=== PATIENT | female | born 1990 | race African-American/Black ===

== ENCOUNTER → 2019-11-08 10:49 | Outpatient (CLI) | payer MEDICAID ==
[2014-12-11 06:10] VITALS: BMI 58.5
[~2019-11-08 10:49] MED LIST: ALDOMET250 MG PO; EZFE 200200 MG PO; PERCOCET 10/3251 TA1 PO; PRENATAL COMPLE1 TAB PO; PROTONIX40 MG
[2019-11-08 11:37] LABS: BASOPHILS 0 % (0-2); EOSINOPHILS 0.5 % (0-7); HEMATOCRIT 28.8 % (36.0-48.0); HEMOGLOBIN 9.1 g/dL (12-16); IMMATURE GRANULOCYTES 0.2 % (0-5); LYMPHOCYTES 6.6 % (15-50); MCH 26.5 pg (26.0-34.0); MCHC 31.6 g/dL (31.0-37.0); MCV 83.7 fL (80.0-100.0); MONOCYTES 5.6 % (2-11); NEUTROPHILS 87.1 % (40-80); PLATELET COUNT 262 10x3/uL (130-400); RBC 3.44 10x6/uL (4.00-5.40); RDW 13.8 % (11.5-14.5); WBC 9.3 10x3/uL (4.8-10.8)
[2019-11-08 11:52] LABS: CALC OSMOLALITY 276 mosm/kg (275-300); CALCIUM 8.1 mg/dL (8.5-10.1); CARBON DIOXIDE 25.4 mmol/L (21.0-32.0); CHLORIDE - SERUM 105 mmol/L (98-107); CREATININE - SERUM 0.6 mg/dL (0.6-1.3); GLUCOSE 112 mg/dL (74-106); POTASSIUM - SERUM 3.2 mmol/L (3.5-5.1); SODIUM 139 mmol/L (136-145); UREA NITROGEN 7 mg/dL (7-18); eGFR NON AFRICAN AMERICAN > 90 mL/min (90-120)
[2019-11-08 11:57] LABS: ALBUMIN 2.2 g/dL (3.4-5.0); ALKALINE PHOSPHATASE 63 U/L (46-116); ALT (SGPT) 36 U/L (10-68); BILIRUBIN - DIRECT 0.13 mg/dL (0.00-0.30); BILIRUBIN - INDIRECT 0.27 mg/dL (0.00-1.00); URIC ACID 3.9 mg/dL (2.6-7.2)
[2019-11-08 14:09] LABS: APPEARANCE CLEAR (CLEAR); BILIRUBIN NEGATIVE (NEGATIVE); COLOR YELLOW (YELLOW); GLUCOSE NEGATIVE (NEGATIVE); KETONE NEGATIVE (NEGATIVE); NITRITE NEGATIVE (NEGATIVE); PROTEIN NEGATIVE (NEGATIVE)
== END | disposition home or self-care (01) ==
LOC: D.LDO 10:49
PROVIDERS: ATTEND Student in an Organized Health Care Education/Training Program
DX: O10.919 Unspecified pre-existing hypertension complicating pregnancy, unspecified trimester (principal)

== ENCOUNTER 2019-11-29 09:44 | Outpatient (CLI) | payer MEDICAID ==
[2014-12-11 06:10] VITALS: BMI 58.5
== END 2019-11-29 12:00 | disposition home or self-care (01) ==
LOC: D.LDO 09:44
PROVIDERS: ATTEND Student in an Organized Health Care Education/Training Program
DX: O16.3 Unspecified maternal hypertension, third trimester (principal); Z3A.33 33 weeks gestation of pregnancy

== ENCOUNTER → 2019-12-06 09:51 | Outpatient (CLI) | payer OTHER ==
[2014-12-11 06:10] VITALS: BMI 58.5
== END | disposition home or self-care (01) ==
LOC: D.LDO 09:51
PROVIDERS: ATTEND Student in an Organized Health Care Education/Training Program
DX: O10.919 Unspecified pre-existing hypertension complicating pregnancy, unspecified trimester (principal)

== ENCOUNTER 2019-12-15 08:36 | Outpatient (CLI) | payer OTHER ==
[2014-12-11 06:10] VITALS: BMI 58.5
[2019-12-15 10:26] LABS: BASOPHILS 0 % (0-2); EOSINOPHILS 0.9 % (0-7); HEMATOCRIT 29.1 % (36.0-48.0); HEMOGLOBIN 9.1 g/dL (12-16); IMMATURE GRANULOCYTES 0.4 % (0-5); LYMPHOCYTES 7.8 % (15-50); MCH 25.7 pg (26.0-34.0); MCHC 31.3 g/dL (31.0-37.0); MCV 82.2 fL (80.0-100.0); MEAN PLATELET VOLUME 9.4 fL (7.4-10.4); MONOCYTES 6.7 % (2-11); NEUTROPHILS 84.2 % (40-80); PLATELET COUNT 275 10x3/uL (130-400); RBC 3.54 10x6/uL (4.00-5.40); RDW 14.3 % (11.5-14.5); WBC 9.1 10x3/uL (4.8-10.8)
[2019-12-15 10:37] LABS: CALC OSMOLALITY 274 mosm/kg (275-300); CALCIUM 8.4 mg/dL (8.5-10.1); CARBON DIOXIDE 26.9 mmol/L (21.0-32.0); CHLORIDE - SERUM 104 mmol/L (98-107); CREATININE - SERUM 0.7 mg/dL (0.6-1.3); GLUCOSE 101 mg/dL (74-106); POTASSIUM - SERUM 3.7 mmol/L (3.5-5.1); SODIUM 138 mmol/L (136-145); UREA NITROGEN 11 mg/dL (7-18); eGFR NON AFRICAN AMERICAN > 90 mL/min (90-120)
[2019-12-15 10:44] LABS: ALBUMIN 2.1 g/dL (3.4-5.0); ALKALINE PHOSPHATASE 69 U/L (30-120); BILIRUBIN - INDIRECT 0.34 mg/dL (0.00-1.00); BILIRUBIN - TOTAL 0.44 mg/dL (0.2-1.3); PROTEIN - SERUM 6.8 g/dL (6.4-8.2); URIC ACID 4.5 mg/dL (2.6-7.2)
[2019-12-15 10:46] LABS: ALT (SGPT) 37 U/L (10-68)
[2019-12-15 11:22] LABS: APPEARANCE CLEAR (CLEAR); BILIRUBIN NEGATIVE (NEGATIVE); COLOR YELLOW (YELLOW); GLUCOSE NEGATIVE (NEGATIVE); KETONE NEGATIVE (NEGATIVE); NITRITE NEGATIVE (NEGATIVE); PROTEIN NEGATIVE (NEGATIVE); UROBILINOGEN NORMAL (NORMAL)
--- NOTE | 2019-12-15 16:26 | NUR ---
SITTING UP IN BED WATCHING TV. REQUESTED JUICE AND SANDWICH TRAY. BOTH WERE GIVEN ALONG WITH FRESH WATER. INSTRUCTED PT SHE CAN SIT UP ON COUCH OR WALK AROUND NEEDED. VERBALIZED UNDERSTANDING. 24 HOUR URINE IN PROGRESS.
[2019-12-16 11:11] LABS: PROTEIN - URINE 30.1 mg/dL (0.0-11.9)
== END 2019-12-16 11:50 | disposition home or self-care (01) ==
LOC: D.LDO 08:36 → D.LD 17:40 → D.LDO 12-16 11:50
PROVIDERS: ATTEND Student in an Organized Health Care Education/Training Program
DX: O16.3 Unspecified maternal hypertension, third trimester (principal); Z3A.36 36 weeks gestation of pregnancy

== ENCOUNTER → 2019-12-17 12:27 | Outpatient (CLI) | payer OTHER ==
[2014-12-11 06:10] VITALS: BMI 58.5
[~2019-12-17 12:27] MED LIST changes: +IBUPROFEN800 MG PO; +NORMODYNE / TR300 MG PO; +PERCOCET 7.5/321 TAB PO; +PROCARDIA XL60 MG PO
== END | disposition home or self-care (01) ==
LOC: D.LDO 12:27
PROVIDERS: ATTEND Student in an Organized Health Care Education/Training Program
DX: O16.3 Unspecified maternal hypertension, third trimester (principal); Z3A.36 36 weeks gestation of pregnancy

== ENCOUNTER 2019-12-21 09:23 | Inpatient (IN) | payer OTHER ==
[~2019-12-21] VITALS: Ht 167.6 cm; Wt 207.7 kg
[2019-12-21] VITALS (11 sets, daily range): BP systolic 137–172; BP diastolic 77–94; Ht 167.6 cm; Wt 207.7 kg
--- NOTE | ~2019-12-21 | OP ---
PATIENT NAME: GABRIELLE NORIEGA MEDICAL RECORD: [id number] :88 LOCATION:[facility]74 ADMISSION DATE:12/21/19 SURGEON: NELL RECINOS DO DATE OF OPERATION: 12/21/2019 PREOPERATIVE DIAGNOSIS: Previous section; multiparity, desire for permanent sterilization. POSTOPERATIVE DIAGNOSIS: Previous section; multiparity, desire for permanent sterilization. PRIMARY SURGEON: Nell Recinos DO DIRECTOR STARS SURGEON: Dr. Vlad Astudillo. ANESTHESIA: General ET tube. PROCEDURE: Midtransverse uterine incision via vertical skin incision, bilateral fimbriectomy. FINDINGS: Male infant, weight 3855 grams. Apgars 8 and 9, delivered at 1317. Normal appearing uterus, bilateral fallopian tubes, bilateral ovaries. SPECIMENS: Placenta and cord. ESTIMATED BLOOD LOSS: 1600 CC. IV FLUIDS: 3 liters +2 units PRBCs. URINE OUTPUT: 250 cc clear urine. COMPLICATIONS: None. CONDITION: Stable. PROCEDURE: The risks, benefits, alternatives and indications of the procedure were discussed with the patient. She voiced understanding of the procedure and signed the consent. She understood that tubal ligation is a permanent procedure and expressed desire for permanent sterility. She was taken to the OR where general anesthesia was administered and found to be adequate. She was placed in the dorsal supine position with a leftward tilt. She was prepped and draped in the normal sterile fashion. A vertical skin incision was made with the scalpel 2 cm superior to the umbilicus, around the umbilicus, and down to 2 cm superior to the pubic ramus. The incision was carried down to the underlying layer of the fascia with the Bovie. The fascia was grasped with 2 Carol clamps and noted to be free of adherent bowel and the fascia was incised with Styles scissors. The fascial incision was extended after ensuring no bowel was adhesed to the fascia. The fascia was extended superiorly and inferiorly with the Bovie. The bladder blade was inserted. A bladder flap was created with Metzenbaum scissors and the uterus was incised in a transverse fashion in the mid uterine area. The incision was extended with cephalad caudad traction. The infant's head was brought to the incision and the delivered without difficulty. Mouth and nose were suctioned. Cord was clamped and cut and the was handed off to waiting pediatricians. The placenta was manually removed. The uterus was exteriorized and a moist lap was used to assure complete removal of placenta OPERATIVE REPORT [id number] GABRIELLE NORIEGA tamiko. The hysterotomy was closed with 0 Vicryl in a double layer closure with good hemostasis noted. Due to uterine atony, Hemabate was given and an extra 10 units of Pitocin was put in the IV fluids with good uterine tone following treatment. The right fimbria was grasped with a Deale and was removed and suture ligated with good hemostasis. The left fallopian tube was removed in a similar fashion with good hemostasis. The uterus and ovaries were returned back to the abdominal cavity. A moist laparotomy sponge was used to assure complete removal of blood clots and fluid from the abdominal cavity and the abdominal cavity was irrigated and noted to be hemostatic. The hysterotomy was reinspected and noted to be hemostatic. The fascial incision was closed with 0 looped PDS with good hemostasis. The subcutaneous fat was closed with 2-0 plain with multiple layer closure and the skin was closed with matt with good hemostasis. All needle, lap, sponge, and instrument counts were correct times 2. The patient tolerated the procedure well and she was awakened and taken to the recovery room in stable condition. TRANSINT:[id number] Voice Confirmation ID: [id number] DOCUMENT ID: [id number] NELL RECINOS DO CC: [id number] DICTATION DATE: 12/21/19 1438 ENGINEERING DESIGN SUPERVISOR: 12/21/192219 ADM IN [place] [id number] [place] [address]
[~2019-12-21 09:23] MED LIST changes: -IBUPROFEN800 MG PO; -NORMODYNE / TR300 MG PO; -PERCOCET 7.5/321 TAB PO; -PROCARDIA XL60 MG PO
[2019-12-21 10:50] LABS: HEMATOCRIT 30.2 % (36.0-48.0); HEMOGLOBIN 9.3 g/dL (12-16); MCH 25.6 pg (26.0-34.0); MCHC 30.8 g/dL (31.0-37.0); MCV 83.2 fL (80.0-100.0); MEAN PLATELET VOLUME 9.4 fL (7.4-10.4); RBC 3.63 10x6/uL (4.00-5.40); RDW 14.8 % (11.5-14.5); WBC 10.4 10x3/uL (4.8-10.8)
--- NOTE | 2019-12-21 13:44 | NUR ---
BABY 1317 PLACENTA 1318
--- NOTE | 2019-12-21 15:25 | NUR ---
TO ROOM 1274 VIA BED FROM RR. AWAKE AND VERBAL RESPONSES APPRO TO QUESTIONS. MENDOZA ON COMMAND. IV RT ACS- SALINE LOCK. IV LR hand with pitocin 20units infusing at 125cc/hr/pump. co cramping and rates pain a 5 on scale of 0-10.
--- NOTE | 2019-12-21 15:44 | NUR ---
mod lochia noted on pads underneath pt- rr nurse states that has not been changed. new pads placed and edna pad placed. pt able to lift bottom a slight bit. edna pads placed. no clots noted on pads underneath. utilization supervisor morphine setup at 2mg/ q10min as per order and pt instructed on use. ice cap to abd. vertical incision with dressing noted covered with abd binder. cd&i.
--- NOTE | 2019-12-21 15:47 | NUR ---
sips ice water given. 125cc urine emptied from chamber.
--- NOTE | 2019-12-21 16:11 | NUR ---
small lochia noted on pads. pt talking with family.
[2019-12-21 16:42] LABS: APPEARANCE CLEAR (CLEAR); BILIRUBIN NEGATIVE (NEGATIVE); COLOR YELLOW (YELLOW); GLUCOSE NEGATIVE (NEGATIVE); KETONE NEGATIVE (NEGATIVE); NITRITE NEGATIVE (NEGATIVE); PROTEIN TRACE mg/dL (NEGATIVE); UROBILINOGEN NORMAL (NORMAL)
--- NOTE | 2019-12-21 16:52 | NUR ---
sitting up in bed talking with family. small lochia noted on pad.
--- NOTE | 2019-12-21 17:01 | NUR ---
report of bp to dr russ- new orders received.
--- NOTE | 2019-12-21 17:17 | NUR ---
holding - denies needs. states pain "is not bad at all"
--- NOTE | 2019-12-21 17:19 | NUR ---
small-mod lochia noted on pad- pad changed.
--- NOTE | 2019-12-21 18:17 | NUR ---
sm to mod lochia on edna pad. no clots edna area cleansed- pads changed. drinking liquids at this time- flory well.
--- NOTE | 2019-12-21 19:15 | NUR ---
BEDSIDE SHIFT REPORT COMPLETED. PERIPADS CHANGED WITH MODERATE LOCHIA NOTED. Lynette MARTINS RN
[2019-12-21 20:02] LABS: BASOPHILS 0.1 % (0-2); EOSINOPHILS 0.2 % (0-7); HEMATOCRIT 29.5 % (36.0-48.0); HEMOGLOBIN 9.4 g/dL (12-16); IMMATURE GRANULOCYTES 0.2 % (0-5); LYMPHOCYTES 5.5 % (15-50); MCH 26.3 pg (26.0-34.0); MCHC 31.9 g/dL (31.0-37.0); MCV 82.4 fL (80.0-100.0); MEAN PLATELET VOLUME 9.2 fL (7.4-10.4); MONOCYTES 5.7 % (2-11); NEUTROPHILS 88.3 % (40-80); PLATELET COUNT 293 10x3/uL (130-400); RBC 3.58 10x6/uL (4.00-5.40); RDW 14.9 % (11.5-14.5)
[2019-12-21 20:03] LABS: WBC 13.3 10x3/uL (4.8-10.8)
--- NOTE | 2019-12-21 20:30 | NUR ---
PT'S CALL LIGHT SOUNDING. THIS RN TO BEDSIDE. PT'S IV PUMP SOUNDING. IV SITE SECURED. PUMP SILENCED. PT DENIES NEEDS AT THIS TIME. CURRENTLY HOLDING BABY.
--- NOTE | 2019-12-21 21:00 | NUR ---
ROUNDS MADE. PT CURRENTLY NEEDING ASSISTANCE WITH GETTING BABY TO FEED. ASSISTANCE PROVIDED.
--- NOTE | 2019-12-21 23:00 | NUR ---
ROUNDS MADE. PT AA&O X 4 WATCHING TV. PAIN AND NEEDS ASSESSED. PT REPORTS PAIN 02/28. REQUEST PERIPAD CHANGE. CURRENT PERIPADS W/MODERATE TO LARGE RUBRA LOCHIA NOTED. PERICARE DONE ALONG W/WILL CARE. CLEAN PERIPADS PLACED. NO CURRENT VAG BLEEDING NOTED. PT DENIES FURTHER NEEDS AT THIS TIME. APPROX 100ML OF URINE DUMPED FROM UROMETER. PT DENIES FURTHER NEEDS. T/C/D TEACHING PROVIDED. PT REPORTS SHE IS USING HER I.S. INSTRUCTED. BED LOW, SIDE RAILS UP X 2. CALL LIGHT, PHONE AND MUSCULOSKELETAL PHYSICIAN BUTTON AT PT'S SIDE.
[2019-12-22 00:30] VITALS: BP 143/83
--- NOTE | 2019-12-22 00:30 | NUR ---
PT REC'D IN BED ASLEEP AT THIS TIME. NO DISTRESS NOTED. DRESSING TO ABDOEN CDI. ICE PACK IN PLACE AT THIS TIME. WILL CATH PATENT. SEE FLOWSHEET FOR ADDITIONAL CHARTING. Lynette MARTINS RN
--- NOTE | 2019-12-22 02:23 | NUR ---
pt admisistered toradol, labetolol, and new bag of pitocin up at this time. tim kraft rn
[2019-12-22 04:29] VITALS: BP 142/67
--- NOTE | 2019-12-22 04:29 | NUR ---
PERICARE PROVIDED AT THIS TIME. SMALL CLOTS X3 NOTED. VSS. NO DISTRESS NOTED. PT DENIES PAIN. Lynette MARTINS RN
[2019-12-22 05:09] LABS: RAPID PLASMA REAGIN Non Reactive (Non Reactive)
[2019-12-22 07:17] VITALS: BP 141/79
--- NOTE | 2019-12-22 07:17 | NUR ---
PT AAOX4, VSS, AFEBRILE, RESP EVEN AND UNLABORED, LUNGS CTAB, HEART RRR, NO MURMUR NOTED, HOB ELEVATED 45 DEGREES, ABD SOFT WITH BULKY VERTICAL PRESSURE DRESSING CDI, FUNDUS FIRM AT U/2 AND MIDLINE, LOCHIA RUBRA MODERATE AMOUNT, NO CLOTS, PERICARE PROVIDED, MENDOZA FREELY, NEGATIVE RADHA'S SIGN B LE, PEDAL PULSES STRONG/=/2+ B. IV TO LEFT HAND PATENT INFUSING LR WITH 20 UNITS PITOCIN WITHOUT SIGNS OR SYMPTOMS OF INFECTION/INFILTRATION. RIGHT A/C SALINE LOCK INTACT AND BENIGN TO INSPECTION. DENIES SINHA, BLURRY VISION, DIZZINESS, OR OTHER PROBLEMS, PAIN AT 4/10 ON NUMERIC PAIN SCALE, POWER SAW MECHANIC OF MORPHINE IN USE, CALL LIGHT AND POWER SAW MECHANIC BUTTON WITHIN EASY REACH OF PT, CUP OF ICE WATER PROVIDED PER REQUEST. WILL TO GRAVITY DRAINAGE WITH XIOMARA URINE NOTED IN COLLECTION CHAMBER.
[2019-12-22 07:31] LABS: BASOPHILS 0.2 % (0-2); EOSINOPHILS 0.6 % (0-7); HEMATOCRIT 28.3 % (36.0-48.0); HEMOGLOBIN 8.9 g/dL (12-16); IMMATURE GRANULOCYTES 0.2 % (0-5); LYMPHOCYTES 7.3 % (15-50); MCH 26.1 pg (26.0-34.0); MCHC 31.4 g/dL (31.0-37.0); MEAN PLATELET VOLUME 9.3 fL (7.4-10.4); MONOCYTES 6.9 % (2-11); NEUTROPHILS 84.8 % (40-80); PLATELET COUNT 279 10x3/uL (130-400); RBC 3.41 10x6/uL (4.00-5.40); RDW 15.2 % (11.5-14.5); WBC 12.4 10x3/uL (4.8-10.8)
--- NOTE | 2019-12-22 08:30 | NUR ---
ROUNDS COMPLETED, SCHEDULED TORADOL GIVEN PER MD ORDERS. DENIES C/O PAIN AT PRESENT. RESP EVEN AND UNLABORED, INFANT IN ARMS, NAD. WILL MONITOR.
--- NOTE | 2019-12-22 09:15 | NUR ---
ancef not available for administration, notified pharmacy and will deliver as soon as possible.
--- NOTE | 2019-12-22 09:35 | NUR ---
ROUNDS COMPLETED, VSS, AFEBRILE, 1 UNIT PRBCS INFUSING TO LEFT HAND PIV SITE SLOWLY PER FACILITY PROTOCOL. IV SITE BENIGN TO INSPECTION, DENIES SINHA, BLURRY VISION, BACK PAIN, CHILLS. WILL MONITOR FOR CHANGE IN CONDITION. IN ROLLING CRIB ADJACENT TO BED.
--- NOTE | 2019-12-22 10:40 | NUR ---
1st unit prbc's completed, no signs or symptoms of transfusion reaction at this time, sbp slightly elevated and md aware as updated on pt rounds. resp even and unlabored, talkative, on telephone now. denies needs. tolerating po, good output of hola urine noted in collection chamber of tamez. discussed plan to dc tamez following prbc adminsitration. denies pain. states some flatus. will monitor.
--- NOTE | 2019-12-22 11:08 | NUR ---
2nd unit of prbc initiated per facility policy, no s/sx immediate reaction, denies sob, cough, pain, chills, or malaise. talking on telephone, cup of ice water refilled per request. reviewed plan of care, instructions given on s/sx to report, encouraged to use call light prn any needs. states understanding. will continue to monitor.
[2019-12-22 12:01] VITALS: BP 152/76
--- NOTE | 2019-12-22 12:30 | NUR ---
2nd unit prbc'c completed, vss. afebrile, no s/sx tranfusion reaction noted. resp even and unlabored, call light in easy reach of pt, emptied 400ml urine from tamez catheter, then tamez bulb deflated and removed per md orders, pericare provided, peripad placed. iv converted to saline lock device, site benign to left hand. lunch tray to pt, personal belongings placed within easy reach of pt. encouraged pt to notify this rn of desire to get oob for voiding and to ambulate in halls. questions answered. will monitor for change in status.
--- NOTE | 2019-12-22 13:15 | NUR ---
ROUNDS COMPLETED, DENIES NEEDS OR CONCERNS. WILL MONITOR. NAD.
--- NOTE | 2019-12-22 14:05 | NUR ---
SHOWER COMPLETED, ABD DRESSING REMOVED, VERTICAL INCISION CDI WITH CAMILO, REMAINS WELL-APPROXIMATED WITH NO ERYTHEMA, EDEMA, DRAINAGE, OR DEHISCENCE. ENCOURAGED PT TO KEEP CLEAN AND DRY, USE OF GAUZE PADS OR PERIPADS IN ABDOMINAL FOLDS TO MINIMIZE MOISTURE. ABD BINDER PLACED AROUND ABDOMEN FOR PT SUPPORT. AMBULATORY IN HALLS WITH ASSISTANCE, NAD NOTED. [facility] WITH [facility] PERSONAL BELONGINGS, ORIENTED TO ROOM/TV/UNIT. CALL LIGHT PLACED WITHIN EASY REACH OF PT. WHITEBOARD UPDATED. WILL MONITOR.
--- NOTE | 2019-12-22 14:24 | NUR ---
SCHEDULED TORADOL ADMINISTERED WITH SIPS WATER. PT REPORTS GAS PAIN ALONG INCISION SITE, OFFERED PRN DULCOLAX, PERCOCET, OR MYLICON AVAILABLE PER MD ORDERS AND PT REFUSES AT THIS TIME. IN ARMS, NAD NOTED. CALL LIGHT IN EASY REACH. CONTINUE TO MONITOR.
--- NOTE | 2019-12-22 15:05 | NUR ---
ROUNDS COMPLETED, DENIES C/O PAIN AT THIS TIME, AMBULATORY IN ROOM. DENIES NEEDS. WILL MONITOR.
[2019-12-22 16:30] VITALS: BP 145/85
--- NOTE | 2019-12-22 16:50 | NUR ---
ROUNDS COMPLETED, VSS, AFEBRILE, +BM TODAY, DENIES NEED FOR PAIN MEDICATION ON OFFER. DINNER TRAY ON BST. SPOUSE IN ROOM TO ASSIST PT. WILL CONTINUE TO MONITOR.
--- NOTE | 2019-12-22 17:20 | NUR ---
ROUNDS COMPLETED, NAD NOTED. DENIES NEEDS OR CONCERNS. IN ROLLING CRIB ADJACENT TO BED, ALSO NAD NOTED. CONTINUE TO MONITOR. CALL LIGHT IN EASY REACH.
--- NOTE | 2019-12-22 18:08 | NUR ---
ROUNDS COMPLETED, NAD NOTED, ICE WATER PROVIDED UPON REQUEST.
--- NOTE | 2019-12-22 18:23 | NUR ---
PT C/O PAIN 6/10 ON NUMERIC PAIN SCALE, PRN MED GIVEN WITH SIPS WATER. NO OTHER NEEDS VOICED AT THIS TIME. WILL CONTINUE TO MONITOR. CALL LIGHT IN EASY REACH.
[2019-12-22 19:21] VITALS: BP 145/88
--- NOTE | 2019-12-22 19:21 | NUR ---
PT STATES PAIN TO ABDOMEN 4/10, FUNDUS IS FIRM, MIDLINE, 2 BELOW, SCANT RUBRA LOCHIA NOTED ON PERIPAD. INCISION IS CLEAN AND DRY, CAMILO INTACT. PT STATES ALL HER NEEDS CURRENTLY HAVE BEEN MET. PT BONDING WITH CURRENTLY. FOB AT BEDSIDE. BED IN LOWEST POSITION, SIDE RAILS UP X2, PHONE AND CALL LIGHT WITHIN REACH.
[2019-12-23 00:51] VITALS: BP 157/82
--- NOTE | 2019-12-23 00:51 | NUR ---
VSS. PT COMPLAINS OF 5/10 PAIN TO ABDOMINAL INCISION. SCANT RUBRA LOCHIA NOTED ON NERY PAD. FUNDUS IS FIRM, MIDLINE, 2 BELOW. PT STATES THAT ALL HER NEEDS HAVE CURRENTLY BEEN MET. BED IN LOWEST POSITION, SIDE RAILS UP X2, PHONE AND CALL LIGHT WITHIN REACH.
--- NOTE | 2019-12-23 02:41 | NUR ---
RN TO PT BEDSIDE, PT REQUESTING ICE WATER, RN PROVIDED PT WITH ICE WATER. BED IN LOWEST POSITION, SIDE RAILS UP X2, PHONE AND CALL LIGHT WITHIN REACH.
[2019-12-23 04:21] VITALS: BP 154/82
--- NOTE | 2019-12-23 04:21 | NUR ---
VSS. PT COMPLAINS OF 4/1O PAIN TO ABDOMEN STATING "IT FEELS MORE LIKE GAS PAIN". FUNDUS IS FIRM, MIDLINE, 2 BELOW, SCANT RUBRA LOCHIA NOTED ON PAD, NO CLOTS NOTED, PT STATES ALL HER OTHER NEEDS HAVE BEEN MET. BED IN LOWEST POSITION, SIDE RAILS UP X2, PHONE AND CALL LIGHT WITHIN REACH.
[2019-12-23 08:06] VITALS: BP 151/86
--- NOTE | 2019-12-23 08:10 | NUR ---
SITTING UP ON EDGE OF BED. DENIES PROBLEMS OR NEEDING ANYTHING. HX OF HTN WAS ON DIURETICS PRIOR TO . ASKED ABOUT SWELLING, DISCUSSED EDEMA PP AND RELIEF MEASURES, ENCOURAGED TO F/U WITH HER PCM REGARDING BP MANAGEMENT/ F/U NOW THAT SHE IS NOT ANYMORE. VERBALIZED UNDERSTANDING. HAS DC ORDER AND WAS TOLD SHE IS TO F/U IN OB CLINIC TUESDAY FOR STAPLE REMOVAL. THINKS SHE HAD FLU VACCINATION IN [facility] IF SHE DID NOT DECLINES BOTH FLU AND TDAP WHILE IN HOSPITAL NOW. NO RECORD OF VACCINATIONS IN PT ELECTRONIC MEDICAL RECORD. WILL GIVE PT INFORMATION. 0+ RUBELLA IMMUNE NON-SMOKER, GBS NEG, 2 DAYS SP REPEAT C/S, BLOOD TRANSFUSIONS X 4. INFANT IN ROOM. FOB SLEEPING ON COUCH, UP AD CAREMN, REGULAR DIET AT BEDSIDE. TO CALL IF ANYTHING IS NEEDED. VERBALIZED UNDERSTANDING. BOTTLE FEEDS INFANT.
[2019-12-23] MEDS ORDERED: PERCOCET 7.5/321 TAB PO (08:51)
[2019-12-23] MEDS ORDERED: IBUPROFEN800 MG PO (08:53)
--- NOTE | 2019-12-23 09:25 | NUR ---
SITTING UP IN BED WATCHING TV. INFANT IN CRIB. FOB SLEEPING ON COUCH.
--- NOTE | 2019-12-23 11:48 | NUR ---
PT SITTING UP IN BED WITH IN CRIB AT BEDSIDE. DENIES NEEDS AT THIS TIME.
--- NOTE | 2019-12-23 13:06 | NUR ---
SITTING UP IN BED. IN CRIB, VISITOR AMBULATING IN ROOM. SAYS SHE IS JUST WAITING ON THE BABY TO BE DISCHARGED. DENIES PAIN "JUST GAS". NO REQUESTS. ATE REGULAR LUNCH. INSTRUCTED PT SHE CAN GET DRESSED ANYTIME. CALL LIGHT IN REACH. TO CALL IF ANYTHING IS NEEDED. VERBALIZED UNDERSTANDING.
--- NOTE | 2019-12-23 14:52 | NUR ---
DR SAAVEDRA CONTACTED. CONFIRMED THAT PATIENT SHOULD CONTINUE HOME MEDS.
[2019-12-23] MEDS ORDERED: NORMODYNE / TR300 MG PO (15:00)
[2019-12-23] MEDS ORDERED: PROCARDIA XL60 MG PO (15:01)
--- NOTE | 2019-12-23 15:14 | NUR ---
CLARIFIED HOME MEDICATIONS AND CURRENT MEDICATION WITH PATIENT. NO LONGER TAKING ALDOMET. HAS BEEN TAKING LABETALOL 300 MG TID AND PROCARDIA 60 MG PO DAILY AT HOME AND WHILE IN HOSPITAL. VERBAL AND WRITTEN DC INSTRUCTIONS REVIEWED WITH PT INCLUDING POST OP CARE, S&S INFECTION, DANGER SIGNS, PP DEPRESSION, MEDICATION ADMINISTRATION, BP EVALUATION-RECOMMEND MONITORING BP AT HOME TID, BP LOG GIVEN TO PT, RECOMMEND TAKING TO POST OP APPOINTMENT AND TO HER PCM APPOINTMENT. VERBALIZED UNDERSTANDING. TO CALL TUESDAY TO SCHEDULE STAPLE REMOVAL ON TUESDAY WITH DR RECINOS. WILL DC TO CAR VIA WHEELCHAIR AFTER INFANT IS DISCHARGED. PT WILL CALL WHEN READY.
--- NOTE | 2019-12-23 15:56 | NUR ---
DC'D VIA WHEELCHAIR TO CAR. VISITOR IS DRIVING. INFANT IN CARSEAT. HAS WRITTEN INSTRUCTIONS AND WRITTEN PRESCRIPTION. ALL BELONGINGS REMOVED FROM ROOM.
== END 2019-12-23 15:56 | disposition home or self-care (01) | DRG 785 ==
LOC: D.LD 09:23
PROVIDERS: ADMIT Student in an Organized Health Care Education/Training Program; ATTEND Student in an Organized Health Care Education/Training Program
PROC: 10D00Z1 Extraction of Products of Conception, Low, Open Approach (ICD-10-PCS; principal; 2019-12-21 12:00)
PROC: 0UB70ZZ Excision of Bilateral Fallopian Tubes, Open Approach (ICD-10-PCS; 2019-12-21 12:00)
DX: O14.04 Mild to moderate pre-eclampsia, complicating childbirth (principal); Z3A.37 37 weeks gestation of pregnancy; Z37.0 Single live birth; Z30.2 Encounter for sterilization; O34.211 Maternal care for low transverse scar from previous cesarean delivery; Z87.891 Personal history of nicotine dependence

== ENCOUNTER → 2020-01-01 11:46 | Outpatient (CLI) | payer OTHER ==
[~2020-01-01 11:46] MED LIST changes: +IBUPROFEN800 MG PO; +NORMODYNE / TR300 MG PO; +PERCOCET 7.5/321 TAB PO; +PROCARDIA XL60 MG PO
== END | disposition home or self-care (01) ==
LOC: D.LDO 11:46
PROVIDERS: ATTEND Student in an Organized Health Care Education/Training Program
DX: O11.9 Pre-existing hypertension with pre-eclampsia, unspecified trimester (principal); Z3A.00 Weeks of gestation of pregnancy not specified